=== PATIENT | female | born 1980 | race Caucasian/White ===

== ENCOUNTER 2016-09-12 11:33 | Outpatient (CLI) | payer MEDICAID ==
[2016-09-12] MEDS ORDERED: PNV91TAB6 (11:54)
[2016-09-12] MEDS ORDERED: ACETAMINOPHEN 500 MG TABLET PO PRN (12:15)
[2016-09-12] MEDS ORDERED: CALCIUM CARBONATE 500mg Chewable TAB PO ONE (12:15)
[2016-09-12 12:46] LABS: BLOOD, URINE NEGATIVE (NEGATIVE); COLOR,URINE YELLOW (YELLOW); LEUKOCYTE ESTERASE ,URINE NEGATIVE (NEGATIVE); NITRITE,URINE NEGATIVE (NEGATIVE); UROBILINOGEN,URINE 0.2 EU/DL (NORMAL)
[2016-09-12 12:56] LABS: HCT - HEMATOCRIT 36.7 % (36-46); HGB - HEMOGLOBIN 11.9 GM/DL (12-16); MEAN CORPUSCULAR HGB 28.9 UUG (26-34); MEAN CORPUSCULAR HGB CONC(MCHC 32.4 GM/DL (31-37); MEAN CORPUSCULAR VOLUME 89.1 UM3 (80-100); MEAN PLATELET VOLUME 9.2 UM3 (9.4-12.4); RED BLOOD COUNT 4.12 M/MM3 (4.00-5.20); WBC - WHITE BLOOD COUNT 12.9 T/MM3 (4.5-11.0)
[2016-09-12 13:00] LABS: ALBUMIN 3.9 G/DL (3.5-5.0); ALBUMIN/GLOBULIN RATIO 1.3 RATIO (1.1-2.2); ALKALINE PHOSPHATASE 78 U/L (38-126); ALT (SGPT) 39 U/L (9-52); ANION GAP 10 MEQ/L (5-15); AST (SGOT) 40 U/L (14-36); BUN/CREATININE RATIO 18 RATIO (6-26); CALCIUM 9.9 MG/DL (8.4-10.2); CHLORIDE 106 MEQ/L (98-107); CO2 - CARBON DIOXIDE 23 MEQ/L (22-30); CREATININE 0.5 MG/DL (0.7-1.2); GLOMERULAR FILTRATION RATE 140; GLUCOSE 99 MG/DL (65-110); POTASSIUM 4.1 MEQ/L (3.6-5); SODIUM 139 MEQ/L (134-144); TOTAL PROTEIN 6.8 G/DL (6.3-8.2)
[2016-09-12 13:20] LABS: BAND NEUTROPHILS # 0.9 T/MM3; BASOPHILS # (MANUAL) 0.1 T/MM3 (0-0.2); LYMPHOCYTES # (MANUAL) 1.3 T/MM3 (1-4.8); MONOCYTES # (MANUAL) 0.3 T/MM3 (0-0.8); NEUTROPHILS #(MANUAL)-ABSOLUTE 10.2 T/MM3 (1.8-7.7); REACTIVE LYMPHOCYTES # 0.1 T/MM3 (0-0); TOTAL CELLS COUNTED 100 %
[2016-09-12 13:26] LABS: LIPASE 72 U/L (23-300)
--- NOTE | 2016-09-12 15:05 | NUR ---
OB Triage E 26 weeks 3 days admitted with c/o sudden onset upper abominal pain that was severe (10/10) this morning lasting 20 minutes. Pain continues but is dull (3/10) now. Has pain in a [place] around stomach and upper abdomen and around back covering lower ribs. Denies pain with pressing on these areas. Lab. Tylenol and TUMS. Pain resolved. Orders to call [facility] in morning and to monitor for recurrence of pain. Also monitor diet and it's response to pain. Pain resolved before dismissal at 1345.
== END 2016-09-12 13:45 | disposition home or self-care (01) ==
LOC: OBOBS 11:33 → MC 11:33 → OBOBS 13:45
PROVIDERS: ATTEND Obstetrics & Gynecology
DX: O26.892 Other specified pregnancy related conditions, second trimester (principal); R10.9 Unspecified abdominal pain; Z3A.26 26 weeks gestation of pregnancy
CPT/HCPCS: 36415; 80053; 81003; 83690; 85025

== ENCOUNTER 2016-09-15 04:28 | Observation (INO) | payer MEDICAID ==
[~2016-09-15] VITALS: Ht 160 cm; Wt 78.6 kg
[~2016-09-15 04:28] MED LIST: PNV91TAB6
--- OUTSIDE RECORDS SUMMARY | 2016-09-15 04:40 | XMS REPORT ---
Author Author Davina Lira [facility] Address [address] [place], [place] [id number] Care Team Providers Care Machine Load Clerk Name Role Phone Davina Lira Unavailable [phone] PROBLEMS Type Condition ICD9-CM Code VOP51-VT Code Onset Dates Condition Status SNOMED Code Problem Asthma J45.909 Active [id number] Problem Migraine G43.909 Active [id number] ALLERGIES Unknown Allergies SOCIAL HISTORY No smoking Hx information available PLAN OF CARE VITAL SIGNS MEDICATIONS Unknown Medications RESULTS No Results PROCEDURES No Known procedures IMMUNIZATIONS No Known Immunizations
[2016-09-15 04:43] VITALS: BP 109/64; PULSE 72; RESP 20; TEMP 97.4
[2016-09-15] MEDS: LR 1,000 ML IV SCH ×2 (05:03→07:07)
[2016-09-15 05:11] LABS: BASOPHILS % (AUTO) 0.3 % (0-2); EOSINOPHILS # (AUTO) 0.1 T/MM3 (0-0.5); EOSINOPHILS % (AUTO) 0.4 % (0-4); HCT - HEMATOCRIT 34.1 % (36-46); HGB - HEMOGLOBIN 11.2 GM/DL (12-16); IMMATURE GRANULOCYTE # (AUTO) 0.04 T/MM3 (0.00-0.03); IMMATURE GRANULOCYTE % (AUTO) 0.3 % (0.0-0.5); LYMPHOCYTES # (AUTO) 1.1 T/MM3 (1-4.8); LYMPHOCYTES % (AUTO) 8.7 % (23-45); MEAN CORPUSCULAR HGB 29.1 UUG (26-34); MEAN CORPUSCULAR HGB CONC(MCHC 32.8 GM/DL (31-37); MEAN CORPUSCULAR VOLUME 88.6 UM3 (80-100); MEAN PLATELET VOLUME 9.3 UM3 (9.4-12.4); MONOCYTES # (AUTO) 0.7 T/MM3 (0-0.8); MONOCYTES % (AUTO) 5.2 % (0-9.0); NEUTROPHILS #(AUTO)-ABSOLUTE 10.8 T/MM3 (1.8-7.7); NEUTROPHILS % (AUTO) 85.1 % (33-66); RED BLOOD COUNT 3.85 M/MM3 (4.00-5.20); WBC - WHITE BLOOD COUNT 12.7 T/MM3 (4.5-11.0)
[2016-09-15 05:16] VITALS: Ht 160 cm; Wt 78.6 kg
[2016-09-15 05:27] LABS: ALBUMIN 3.7 G/DL (3.5-5.0); ALBUMIN/GLOBULIN RATIO 1.2 RATIO (1.1-2.2); ALKALINE PHOSPHATASE 119 U/L (38-126); ALT (SGPT) 97 U/L (9-52); ANION GAP 12 MEQ/L (5-15); AST (SGOT) 62 U/L (14-36); BUN/CREATININE RATIO 15 RATIO (6-26); CALCIUM 9.2 MG/DL (8.4-10.2); CHLORIDE 107 MEQ/L (98-107); CO2 - CARBON DIOXIDE 19 MEQ/L (22-30); CREATININE 0.4 MG/DL (0.7-1.2); GLOMERULAR FILTRATION RATE 182; GLUCOSE 108 MG/DL (65-110); POTASSIUM 3.6 MEQ/L (3.6-5); SODIUM 138 MEQ/L (134-144); TOTAL PROTEIN 6.7 G/DL (6.3-8.2)
[2016-09-15] MEDS ORDERED: MORPHINE SULFATE SL PRN (05:45)
--- NOTE | 2016-09-15 06:02 | NUR ---
PAIN Morphine 10 mg IV given per Dr. Mehta's order. Awake and alert. RR 18
[2016-09-15] MEDS ORDERED: NALOXONE 0.4mg/ml INJECTION IV PRN (06:15)
[2016-09-15] MEDS ORDERED: MORPHINE SULFATE 10 MG SYRINGE IV PRN (06:15)
--- NOTE | 2016-09-15 06:18 | NUR ---
Pain re-assessment Pt. sleepy, RR 15. SaO2 97%. 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 Dr. Mehta wants dose of Narcan to back off on dose of Morphine
[2016-09-15 06:20] LABS: BLOOD, URINE NEGATIVE (NEGATIVE); COLOR,URINE AMBER (YELLOW); LEUKOCYTE ESTERASE ,URINE NEGATIVE (NEGATIVE); NITRITE,URINE NEGATIVE (NEGATIVE)
--- NOTE | 2016-09-15 06:20 | NUR ---
Narcan 0.2 mg Narcan IV given. Pt. talking. RR 15. Sa02 97%
[2016-09-15 06:31] VITALS: RESP 16
--- NOTE | 2016-09-15 06:31 | PNPDOC ---
Progress Note Date 09/15/[address] Avelino Mehta at 0601, patient admitted for gallbladder pain during , patient was given a dose of 10 mg of morphine. Patient became somnolent, Dr. Mehta became concerned for patient receiving too much medication. Evaluated patient patient was very somnolent, however was maintaining her oxygen saturation at 96% blood pressure was 90s/50s. Patient was given a dose of 0.2 mg of Narcan 1, patient became more alert, blood pressure elevated and to the 100s/60s, patient still maintaining her oxygen saturation 96-97%. Discussed case with Dr. Mehta, patient's pain had gone from 0/10-2/10 with administration of Narcan, this was felt to be an acceptable level. Dr. Mehta currently comfortable with patient, we will reevaluate to make sure patient maintains mentation and oxygen saturation. 0652: Reevaluated patient, patient is alert and oriented, appropriate, continuing complaining of 2/10 abdominal pain, blood pressure remains in the 100s over 60s, oxygen saturation 97% on room air respiratory rate currently 16. At this time we will defer care to Dr. Mehta. YONATAN LANDON MD September 15, 2016 06:31
[2016-09-15 06:44] LABS: BACTERIA,URINE 3+ (NEGATIVE); CALCIUM OXALATE CRYSTALS,UR MANY; MUCUS,URINE PRESENT; RBC,URINE NONE SEEN /HPF (0-3); WBC,URINE NONE SEEN /HPF (0-5)
[2016-09-15] MEDS ORDERED: MORPHINE SULFATE JT PRN (07:45)
--- NOTE | 2016-09-15 07:51 | PNPDOC ---
Progress Note Date 09/15/16 Transfer arranged to [facility]/ Dr Travis Fraga. Acute cholelithiasis with common bile duct blockage and elevated liver enzymes. Discussed with pt and her . Barbara. DEBBY GRUBBS MD September 15, 2016 07:51
--- NOTE | 2016-09-15 07:53 | NUR ---
Transfer Report Report given to lita Mir RN at [place] prior to pt. transfer
--- NOTE | 2016-09-15 07:56 | NUR ---
Transfer Call made to 1 to request ambulance transfer of pt. to [facility].
--- NOTE | 2016-09-15 10:39 | PNF ---
DATE OF ADMISSION: 09/15/2016 ADMISSION NOTE This is a patient of Dr. Oswald whose paged me at 3:30 this morning reporting that his was having upper abdominal and right upper quadrant pain 10/10 on a pain scale. It began last weekend and they were seen in Maternal Child Unit and sent home. Then they were seen in the office on Tuesday, September 13, by Dr. Oswald and a gallbladder scan was ordered for Tuesday in [place]. That scan reported a distended bile duct with multiple stones within the common bile duct and multiple stones within the gallbladder. No gallbladder wall thickening was seen at that time. The patient reports her pain has never resolved since this weekend but starting last night it became much worse and by 3:00 this morning it was 10/10. She reports she hasn't really ate or drank much for the past couple of days. I told her to come to Labor & Delivery and be admitted. On admission her vital signs were stable. Her temperature was 97.4, blood pressure 109/64. I had them do laboratory and her white blood count is 12.7 and her neutrophils have increased from 79% this weekend to 85% now. More significantly , on the CMP her AST and ALT are now both elevated and her total bilirubin has increased from 1.1 this weekend to 4.6 now. A urine has been ordered but is still pending at this point in time. The patient reports epigastric and right upper quadrant pain that wraps around to her back. I have made her n.p.o. and started IV fluid rehydration. I have ordered IV pain medicines. I put in for a consult with Dr. Blancas. She was supposed to see him on September 22 with a scheduled appointment, but clearly this can 't wait until then. Questions were answered to her and her 's satisfaction. heart strip was run and there are no decelerations. It is appropriate for gestational age. [facility]
== END 2016-09-15 08:20 | disposition short-term general hospital (02) ==
LOC: MC 04:28
PROVIDERS: ADMIT Obstetrics & Gynecology; ATTEND Obstetrics & Gynecology
DX: O99.612 Diseases of the digestive system complicating pregnancy, second trimester (principal); K80.71 Calculus of gallbladder and bile duct without cholecystitis with obstruction; O09.522 Supervision of elderly multigravida, second trimester; Z3A.26 26 weeks gestation of pregnancy
CPT/HCPCS: 36415; 59025; 80053; 81001; 85025; 96361; 96374; G0378; J2310; J7120; 99218

== ENCOUNTER 2016-11-25 03:13 | Inpatient (IN) ==
[2016-11-25] MEDS ORDERED: CALCIUM CARBONATE Chewable 500mg TABLET PO PRN ×2 (09:01→19:53)
[2016-11-25] MEDS ORDERED: D5LR 1,000 ML IV PRN (09:01)
[2016-11-25] MEDS ORDERED: LIDOCAINE 1% (10mg/ml) 2mL INJ PF SDV ID PRN (09:01)
[2016-11-25] MEDS ORDERED: CARBOPROST 250 MCG/ML INJECTION IM PRN (09:01)
[2016-11-25] MEDS ORDERED: ACETAMINOPHEN 500 MG TABLET PO PRN ×2 (09:01→19:53)
[2016-11-25] MEDS ORDERED: MAG-AL + SIM ORAL LIQUID 30ml PO PRN ×2 (09:01→19:53)
[2016-11-25] MEDS ORDERED: OXYTOCIN DRIP 30 UNIT/500 ML ML IV PRN (09:01)
[2016-11-25] MEDS ORDERED: METHYLERGONOVINE 0.2 MG/ML INJECTION IM PRN (09:01)
[2016-11-25] MEDS: LR 1,000 ML IV PRN ×2 (09:50→14:50)
--- NOTE | 2016-11-25 10:13 | Anesthesia Preoperative Report ---
Anesthesia Epidural/Spinal Rec - Date and Time Date: 11/25/16 Preoperative Diagnosis: labor, induction Plan: Epidural, Spinal, GETA - Vital Signs Vital Signs: Pulse Rate 89 11/25/16 09:00 Respiratory Rate 16 11/25/16 09:00 Blood Pressure 114/75 11/25/16 09:00 Pulse Oximetry 99 11/25/16 09:00 Oxygen Delivery Method Room Air /Para: P:2 Heart Rate: 145 - Medictaions & Allergies Inpatient Medications: Current Medications Acetaminophen (Tylenol) 500 - 1,000 mg PO Q4H PRN PRN Reason: Pain Al Hydroxide/Mg Hydroxide (Maalox Plus) 30 ml PO Q3H PRN PRN Reason: Indigestion Calcium Carbonate (Tums) 500 - 1,000 mg PO Q2H PRN PRN Reason: Indigestion Carboprost Tromethamine (Hemabate) 250 mcg IM O PRN PRN Reason: .Downtime Dextrose/Lactated Ringer's (Dextrose 5%-Lactated Ringers) 1,000 mls @ 125 mls/ hr IV .Q8H PRN PRN Reason: Labor Lactated Ringer's (Lactated Ringers) 1,000 mls @ 1,000 mls/hr IV .Q1H PRN PRN Reason: as directed Oxytocin (Pitocin Drip) 30 unit in 500 mls @ 2 mls/hr IV .Q24H PRN; Protocol PRN Reason: Induction/Augmentation Lidocaine HCl (Xylocaine-Mpf 1% Vial) 0.2 mg ID O PRN PRN Reason: IV Start Methylergonovine Maleate (Methergine) 0.2 mg IM O PRN Misoprostol (Cytotec) 800 mcg OR ONCE PRN Allergies/Adverse Reactions: Allergies Allergy/AdvReac Type Severity Reaction Status Date / Time egg Allergy Unknown DYSPNEA Verified 09/12/16 11:53 - Home Medications Home Medications: Home Medications Medication Instructions Recorded Confirmed Type Pnv No.95/Ferrous Fum/Folic AC #0 09/12/16 History [ Vitamin Tablet] - Medical History Neuro/Musculoskeletal: Reports: Headaches - Surgical History Anesthesia Reactions: None Hx Family Anesthesia Reaction: No History of Motion Sickness: No - Social History Smoking Status: Current every day smoker Second Hand Exposure: No Substance Use Type: does not use Alcohol Intake Frequency: does not drink Hx Chewing Tobacco Use: No - Pertinent Findings Lab Data: CBC and BMP 11/25/16 09:43 - Physical Exam Respiratory Exam: lungs clear, bilateral breath sounds equal Cardiovascular Exam: regular rate and rhythm, no murmur - Airway Assessment Mallampati Score: II TMD: 3 Fingerbreadths Neck Extension: good Overall Assessment: no airway concerns - ASA ASA Score: 2 - Discussion Discussion: Discussed risks/options/alternatives of anesthesia and questions answered. Patient consents. Nursing pain assessment noted. Anesthesia Discussion: spouse Attestation Statement: Prior to the delivery of any anesthetic medication, I examined the patient, developed the plan, obtained the patient's consent and discussed the risk and benefits of the procedure with the patient/guardian.
[2016-11-25 10:50] VITALS: BMI 31.2
[2016-11-25] MEDS ORDERED: NALBUPHINE 10 MG/ML INJECTION IVP PRN (17:19)
[2016-11-25] MEDS ORDERED: DiphenhydrAMINE 50 MG/ML INJECTION IVP PRN (17:38)
[2016-11-25] MEDS ORDERED: ROPIVACAINE 1% 10MG/ML INJ 200 MG, SUFentanil 50 MCG in NS 100 ML EPI PRN (17:38)
[2016-11-25] MEDS ORDERED: ONDANSETRON 4 MG/2 ML INJECTION IVP PRN (17:38)
[2016-11-25] MEDS ORDERED: NALOXONE 0.4 MG/ML INJECTION IVP PRN (17:38)
[2016-11-25] MEDS ORDERED: HYDROCORTISONE 2.5% CREAM 30gm RECTALLY PRN (19:53)
[2016-11-25] MEDS ORDERED: OXYTOCIN DRIP 30 UNIT/500 ML ML IV SCH (19:53)
[2016-11-25] MEDS ORDERED: SALINE FLUSH 10ml SYRINGE IVF PRN (19:53)
[2016-11-25] MEDS ORDERED: DiphenhydrAMINE 25 MG CAPSULE PO PRN (19:53)
[2016-11-25] MEDS ORDERED: HYDROCODONE/APAP 5mg/325mg TABLET PO PRN (19:53)
--- NOTE | 2016-11-25 20:03 | Labor and Delivery Note ---
DATE OF DELIVERY 11/25/2016 NARRATIVE Ms. Escamilla progressed very rapidly from 3 cm to complete and +2. She pushed for about five minutes, delivering the head in the OA presentation. Baby was bulb suctioned on the perineum. There was no evidence of nuchal cord. With a further push she delivered the baby in total. Baby was then further bulb suctioned and placed on mother's abdomen. After about two and a half minutes the cord was nice and soft. It was doubly clamped. It was then cut by the baby's father, Zay. This was a liveborn female with Apgars of 8/9/9. Weight has not yet been obtained as they are still in [id number] contact. The placenta delivered spontaneously intact a few moments after delivery of the baby. The placenta was normal and had a normal-appearing three-vessel cord. There was a second-degree midline laceration that was repaired in the usual fashion with a 2-0 Vicryl. Total blood loss was approximately 200 mL. At the time of this dictation mother and baby are doing well. JOSE
[2016-11-26] MEDS: IBUPROFEN 800 MG TABLET PO SCH ×5 (00:09→18:30)
[2016-11-26] MEDS ORDERED: PRENATAL VITAMIN TABLET PO SCH (09:00)
[2016-11-26] MEDS ORDERED: DOCUSATE CALCIUM 240 MG CAPSULE PO SCH (09:00)
[2016-11-26] MEDS ORDERED: FERROUS SULFATE 324 MG TABLET PO SCH (09:00)
--- NOTE | 2016-11-26 09:24 | Discharge Instructions ---
Discharge Plan - Med Rec/Dispo Prescriptions: New Docusate Calcium [Surfak] 240 mg PO DAILY #30 capsule Ibuprofen [Motrin] 800 mg PO Q8H #30 tablet Hydrocodone/APAP 5/325 [[place] 5/325] 1 - 2 tab PO Q4H PRN #20 tablet PRN Reason: Pain No Action Pnv No.95/Ferrous Fum/Folic AC [ Vitamin Tablet] #0 - Disposition 01 Discharged Home, Self-Care
--- NOTE | 2016-11-26 09:26 | OB/GYN Progress Note ---
OB-PP Progress Note - General PPD1 Maternal Group B Strep: Negative Maternal Rubella Status: Immune - Subjective Date: 11/26/16 Lochia: Minimal Pain: contolled Voiding: voiding Nausea or Vomiting Present: No - Objective Vital Signs: Last Vital Signs Temp 98.1 F 11/26/16 06:48 Pulse 67 11/26/16 06:48 Resp 16 11/26/16 06:48 BP 109/59 11/26/16 06:48 Pulse Ox 97 11/26/16 06:48 Urine Output: good General: alert and oriented Abdomen: fundus firm, non-tender Extremities: non-tender Edema: none Laboratory: Laboratory Results - last 24 hr 11/25/16 09:43 WBC 9.3 RBC 3.84 L Hgb 11.1 L Hct 33.7 L MCV 87.8 MCH 28.9 MCHC 32.9 RDW Std Deviation 44.0 Plt Count 221 MPV 9.4 - Assessment Assessment: SP, - Plan Plan: routine care Pt doing well, baby may stay overnight. Q&A
[2016-11-26 18:17] VITALS: BP 112/64; PULSE 60; RESP 18; TEMP 98.3; O2SAT 98
== END 2016-11-26 20:45 | disposition home or self-care (01) | DRG 775 ==
LOC: MC 08:54
PROVIDERS: ADMIT Obstetrics & Gynecology; ATTEND Obstetrics & Gynecology